=== PATIENT | female | born 1935 | race Caucasian/White ===

== ENCOUNTER 2016-07-20 08:41 | Outpatient (CLI) | payer MEDICARE, OTHER | END 2016-07-20 08:42 | disposition home or self-care (01) | DX: I10 Essential (primary) hypertension (principal); R73.01 Impaired fasting glucose; E78.5 Hyperlipidemia, unspecified ==

== ENCOUNTER 2017-07-24 09:00 | Outpatient (CLI) | payer MEDICARE, OTHER ==
[2017-07-24 18:00] LABS: ALBUMIN 4.2 g/dL (3.2-5.5); ALBUMIN/GLOBULIN RATIO 1.6 (1.0-2.2); ALKALINE PHOSPHATASE 54 IU/L (42-121); ALT ALANINE AMINOTRANSFERASE 17 IU/L (10-60); AST ASPARTATE AMINOTRANSFERASE 19 IU/L (10-42); BUN - BLOOD UREA NITROGEN 19 mg/dL (6-20); CALCIUM 9.1 mg/dL (8.5-10.3); CARBON DIOXIDE - CO2 27 mmol/L (21-32); CHLORIDE 106 mmol/L (101-111); CHOLESTEROL 189 mg/dL; CREATININE 0.6 mg/dL (0.4-1.0); GFR - MDRD 96 (>89); GLUCOSE 106 mg/dL (70-100); HDL CHOLESTEROL 62 mg/dL; LDL CHOLESTEROL,CALCULATED 112 mg/dL; LDL/HDL RATIO 1.8 (<4.4); SODIUM 139 mmol/L (135-145); TOTAL PROTEIN 6.9 g/dL (6.7-8.2); VLDL CHOLESTEROL 15 mg/dL
[2017-07-24 18:03] LABS: HB2 TOTAL 15.2 g/dL; HEMOGLOBIN A1C 0.46 g/dL; HEMOGLOBIN A1C % 4.9 % (4.6-6.2)
== END 2017-07-24 09:01 | disposition home or self-care (01) ==
LOC: LAB.F 09:00
PROVIDERS: ATTEND Family Medicine
DX: E78.00 Pure hypercholesterolemia, unspecified (principal); R73.01 Impaired fasting glucose; I10 Essential (primary) hypertension; E55.9 Vitamin D deficiency, unspecified
CPT/HCPCS: 36415; 80053; 80061; 82306; 83036; 83721

== ENCOUNTER 2017-12-11 11:27 | Emergency (ER) | payer MEDICARE, OTHER ==
--- NOTE | 2017-12-11 13:27 | ED Physician Documentation ---
PD HPI BACK INJURY - Stated complaint Stated Complaint: LOWER BACK PX - History obtained from History obtained from: Patient, Family - History of Present Illness Location: Lower Type of injury: Fall Where injury occurred: Home Timing - onset: How many days ago (10) Timing - duration: Days (10) Timing - details: Abrupt onset, Still present Quality: Pain, Sharp Improved by: Rest, Immobilization Worsened by: Moving, Palpating Associated symptoms: No: Fever, Weakness, Numbness, Incontinent of urine, Unable to urinate, Hematuria, Incontinent of stool Contributing factors: Prior back surgery. No: Anticoagulated Similar symptoms before: Has not had sx before Recently seen: Not recently seen - Additional information Additional information: 82-year-old female was at her home 10 days ago when she slipped on a wet deck and fell onto her buttocks. She has pain in the lower portion of her back and over the tailbone. She is having trouble when she tries to sit. She is not having much luck with the use of Aleve for pain control. PD PAST MEDICAL HISTORY - Past Medical History Past Medical History: Yes - Past Surgical History Past Surgical History: No - Present Medications Home Medications: Ambulatory Orders Medication Instructions Recorded Confirmed HYDROcod/ACETAM 5/325 [[place] 5/325] 1 - 2 ea PO Q6H PRN #15 tablet 12/11/17 Lisinopril 12/11/17 - Allergies Allergies/Adverse Reactions: Allergies Allergy/AdvReac Type Severity Reaction Status Date / Time No Known Drug Allergies Allergy Verified 12/11/17 11:33 - Social History Does the pt smoke?: No Smoking Status: Never smoker Does the pt drink ETOH?: No Does the pt have substance abuse?: No - Immunizations Immunizations are current?: Yes - POLST Patient has POLST: No PD ED PE NORMAL - Vitals Vital signs reviewed: Yes (hypertensive ) - General General: Alert and oriented X 3, No acute distress, Well developed/nourished, Other (laying on her side ) - HEENT HEENT: Atraumatic, PERRL - Neck Neck: Supple, no meningeal sign - Respiratory Respiratory: No respiratory distress - Back Back: No CVA TTP, Other (There is point tenderness to the sacral spine about mid sacrum. There is no bruising evident) - Derm Derm: Normal color, Warm and dry, No rash - Extremities Extremities: No deformity, No edema - Neuro Neuro: Alert and oriented X 3, rate marker 2-12 intact, No motor deficit, No sensory deficit, Normal speech Eye Opening: Spontaneous Motor: Obeys Commands Verbal: Oriented GCS Score: 15 - Psych Psych: Normal mood, Normal affect Results - Vitals Vitals: Vital Signs - 24 hr 12/11/17 12/11/17 11:31 14:50 Temperature 36.7 C 36.9 C Heart Rate 68 78 Respiratory 20 18 Rate Blood Pressure 173/84 H 172/94 H O2 Saturation 95 98 Oxygen O2 Source Room air - Rads (name of study) sacrum and coccyx Radiology: Prelim report reviewed (Impression: Acute mildly displaced transverse fracture mid body S3. ), EMP read indepedently, See rad report PD MEDICAL DECISION MAKING - ED course Complexity details: reviewed results, re-evaluated patient, considered differential, d/w patient ED course: 82 y/o female with a fall 10 days ago and a sacral fracture. She will need some pain medication. - Sepsis Event Vital Signs: Vital Signs - 24 hr 12/11/17 12/11/17 11:31 14:50 Temperature 36.7 C 36.9 C Heart Rate 68 78 Respiratory 20 18 Rate Blood Pressure 173/84 H 172/94 H O2 Saturation 95 98 Oxygen O2 Source Room air Departure - Departure Disposition: 01 Home, Self Care Clinical Impression: Sacral fracture, closed Qualifiers: Encounter type: initial encounter Zone of sacrum fracture: zone II of sacrum Fracture alignment: nondisplaced Qualified Code(s): S32.120A - Nondisplaced Zone II fracture of sacrum, initial encounter for closed fracture Instructions: ED Fx Coccyx Follow-Up: Emre Koo MD [Primary Care Provider] - Prescriptions: HYDROcod/ACETAM 5/325 [[place] 5/325] 1 - 2 ea PO Q6H PRN #15 tablet PRN Reason: Pain Discharge Date/Time: 12/11/17 14:51
--- NOTE | 2017-12-11 14:33 | XRAY Report ---
Procedure Date: 12/11/2017 Accession Number: [id number] / [id number] Procedure: XR - Sacrum/Coccyx CPT Code: FULL RESULT: EXAM: SACRUM AND COCCYX RADIOGRAPHY EXAM DATE: 12/11/2017 02:08 PM. HISTORY: Fall tailbone pain. COMPARISONS: Pelvic CT 09/07/2009. TECHNIQUE: 3 views. FINDINGS: Alignment: Stable grade 2 degenerative subluxation L5-S1. Bones: Mild cortical irregularity with linear lucency extending transversely through the mid body of S3. Slight dorsal angulation at this site. Remote laminectomy, interbody fusion and posterior surgical hardware L4 to S1. Joints: Normal. The sacroiliac joints and visualized hips are within normal limits. Soft Tissues: Unremarkable. IMPRESSION: Acute mildly displaced transverse fracture mid body S3. RADIA The above findings were discussed with Facundo Cheney by Dr. Ema Marcelino at 14:32 hrs on 12/11/17.
[2017-12-11 14:51] VITALS: BP 172/94
== END 2017-12-11 14:51 | disposition home or self-care (01) ==
LOC: ED 11:27
DX: S32.130A Nondisplaced Zone III fracture of sacrum, initial encounter for closed fracture (principal); W01.0XXA Fall on same level from slipping, tripping and stumbling without subsequent striking against object, initial encounter; Y92.007 Garden or yard of unspecified non-institutional (private) residence as the place of occurrence of the external cause
CPT/HCPCS: 72220; 99283

== ENCOUNTER 2019-10-13 11:50 | Outpatient (CLI) | payer MEDICARE, OTHER | END 2019-10-13 11:51 | disposition short-term general hospital (02) | LOC: EMS 11:50 | PROVIDERS: ATTEND Surgery | DX: R41.0 Disorientation, unspecified (principal); R47.9 Unspecified speech disturbances | CPT/HCPCS: A0425; A0429 ==